=== PATIENT | female | born 1990 | race Two or more races ===

== ENCOUNTER 2022-03-21 05:32 | Emergency (ER) | payer BC ==
[~2022-03-21] VITALS: Ht 152.4 cm; Wt 68.5 kg
[2022-03-21] MEDS ORDERED: PROAIR HFA8.5 GM (05:39)
== END 2022-03-21 10:59 | disposition home or self-care (01) ==
LOC: ER 05:32
DX: K59.00 Constipation, unspecified (principal); R10.32 Left lower quadrant pain; I88.0 Nonspecific mesenteric lymphadenitis